=== PATIENT | male | born 1930 | race Hispanic/Latino ===

== ENCOUNTER 2017-11-21 14:02 | Inpatient (IN) | payer MEDICARE, MEDICAID ==
[~2017-11-21] VITALS: Ht 160 cm; Wt 63.5 kg
[2017-11-21 15:34] LABS: BASOPHILS % (AUTO) 0.2 % (0.0-5.0); EOSINOPHILS % (AUTO) 0.1 % (0.0-8.0); HEMATOCRIT 34.4 % (42-54); LYMPHOCYTES % (AUTO) 14.1 % (21.0-51.0); MEAN CORPUSCULAR HEMOGLOBIN 32.1 pg (27.0-33.0); MEAN CORPUSCULAR HGB CONC 35.4 g/dL (32.0-36.0); MEAN CORPUSCULAR VOLUME 90.6 fL (79-99); MONOCYTES % (AUTO) 12.3 % (3.0-13.0); NEUTROPHILS % (AUTO) 73.3 % (40.0-77.0); PLATELET COUNT (AUTO) 121 K/uL (130-400); RED CELL DISTRIBUTION WIDTH 14.3 % (11.0-15.5); WHITE BLOOD COUNT (AUTO) 10.6 K/uL (4.8-10.8)
[2017-11-21 15:44] LABS: CREATININE 1.3 mg/dL (0.5-1.5)
[2017-11-21 15:47] LABS: INR 1.09 (0.85-1.15); PARTIAL THROMBOPLASTIN TIME 24.9 SEC (26.3-35.5); PROTHROMBIN TIME 11.4 SEC (9.6-11.6)
[2017-11-21 15:50] LABS: ALBUMIN 3.3 g/dL (3.5-5.0); BILIRUBIN,TOTAL 0.7 mg/dL (0.2-1.0); TOTAL PROTEIN, SERUM 6.8 g/dL (6.0-8.3)
[2017-11-21] MEDS ORDERED: ONDANSETRON HCL 4 MG/2 ML VIAL ONE (16:09)
[2017-11-21] MEDS ORDERED: MORPHINE SULFATE 4 MG/1ML SYG ONE (16:10)
[2017-11-21 20:15] VITALS: BP 117/62
[2017-11-21] MEDS ORDERED: CLOP75TA14 PO (21:01)
[2017-11-21] MEDS ORDERED: AEC81 PO (21:02)
[2017-11-21] MEDS ORDERED: ONDANSETRON HCL 4 MG/2 ML VIAL IVP PRN (21:30)
[2017-11-21] MEDS ORDERED: MORPHINE SULFATE 2 MG/ML 1ML SYG IVP PRN ×2 (21:30→23:30)
[2017-11-21] MEDS: HYDROCODONE/ACETAMINOPHEN 5/325 MG TAB PO SCH (21:41)
[2017-11-21 22:31] LABS: CREATINE KINASE MB 0.9 ng/mL (0.5-3.6); CREATINE KINASE, TOTAL 167 U/L (21-232); MYOGLOBIN 145 ng/mL (10-92); TROPONIN I < 0.04 ng/mL (0.00-0.06)
[2017-11-21] MEDS ORDERED: ACETAMINOPHEN 325 MG TAB PO PRN (22:45)
[2017-11-21] MEDS ORDERED: GLUCAGON 1MG KIT 1 MG ML IM PRN (22:45)
[2017-11-21] MEDS ORDERED: DEXTROSE 50%-WATER 50 ML DISP.SYRIN IV PRN (22:45)
[2017-11-22] VITALS (7 sets, daily range): BP systolic 118–139; BP diastolic 54–72
[2017-11-22] MEDS ORDERED: PNEUMOCOCCAL VACCINE POLYVALENT 0.5 ML/VIAL [PPV] IM SCH (02:30)
[2017-11-22] MEDS: HYDROCODONE/ACETAMINOPHEN 5/325 MG TAB PO SCH ×4 (03:45→20:22)
[2017-11-22] MEDS: INSULIN HUMULIN R 100 UNIT/ML 3ML SQ SCH ×4 (05:48→22:16)
[2017-11-22] MEDS ORDERED: PNEUMOCOCCAL VACCINE POLYVALENT 0.5 ML/VIAL [PPV] IM ONE (06:15)
[2017-11-22 07:38] LABS: CREATINE KINASE MB 1.2 ng/mL (0.5-3.6); CREATINE KINASE, TOTAL 174 U/L (21-232); MYOGLOBIN 206 ng/mL (10-92); TROPONIN I < 0.04 ng/mL (0.00-0.06)
[2017-11-22] MEDS: CARVEDILOL 3.125 MG TABLET PO SCH (20:21)
[2017-11-23] VITALS (30 sets, daily range): BP systolic 104–155; BP diastolic 61–95
[2017-11-23] MEDS: HYDROCODONE/ACETAMINOPHEN 5/325 MG TAB PO SCH ×4 (03:18→21:07)
[2017-11-23] MEDS: FLU VACC QS2017-18 36MOS UP/PF 60 MCG/0.5 ML ML IM SCH ×2 (04:15→17:38)
[2017-11-23] MEDS ORDERED: MORPHINE SULFATE 4 MG/1ML SYG ONE (05:34)
[2017-11-23] MEDS: INSULIN HUMULIN R 100 UNIT/ML 3ML SQ SCH ×4 (05:40→23:58)
[2017-11-23] MEDS: PNEUMOCOCCAL VACCINE POLYVALENT 0.5 ML/VIAL [PPV] IM SCH ×2 (06:15→17:37)
[2017-11-23] MEDS ORDERED: CEFAZOLIN 2GM / 50 ML 50 ML IV SCH ×2 (10:00)
[2017-11-23] MEDS: CEFAZOLIN SODIUM 1 GM VIAL IVP SCH ×2 (10:15→13:00)
[2017-11-23] MEDS: CARVEDILOL 3.125 MG TABLET PO SCH ×2 (11:31→21:08)
[2017-11-23] MEDS ORDERED: ROPIVACAINE 0.5% 5MG/ML 30ML IJ ONE (12:14)
[2017-11-23] MEDS ORDERED: PROPOFOL 10 MG/ML 20ML VIAL IV ONE (12:18)
[2017-11-23] MEDS ORDERED: KETAMINE HCL 100 MG/ML 5ML VIAL IJ ONE (12:29)
[2017-11-23] MEDS ORDERED: MIDAZOLAM HCL 1 MG/ML 2ML VIAL ONE (12:35)
[2017-11-24] VITALS (7 sets, daily range): BP systolic 114–151; BP diastolic 53–74
[2017-11-24] MEDS: HYDROCODONE/ACETAMINOPHEN 5/325 MG TAB PO SCH ×4 (03:41→21:22)
[2017-11-24] MEDS: FLU VACC QS2017-18 36MOS UP/PF 60 MCG/0.5 ML ML IM SCH (04:15)
[2017-11-24] MEDS: INSULIN HUMULIN R 100 UNIT/ML 3ML SQ SCH ×4 (06:43→21:00)
[2017-11-24] MEDS: CEFAZOLIN SODIUM 1 GM VIAL IVP SCH (07:34)
[2017-11-24] MEDS: CARVEDILOL 3.125 MG TABLET PO SCH ×2 (08:15→21:25)
[2017-11-24] MEDS ORDERED: LACTULOSE 20 GM/30 ML UDCUP PO PRN (13:15)
[2017-11-24] MEDS ORDERED: DOCUSATE CALCIUM 240 MG CAP PO SCH ×2 (13:15→13:39)
[2017-11-24] MEDS ORDERED: MORPHINE SULFATE 4 MG/1ML SYG ONE (16:05)
[2017-11-25 04:00] VITALS: BP 128/59
[2017-11-25] MEDS: HYDROCODONE/ACETAMINOPHEN 5/325 MG TAB PO SCH ×3 (04:24→15:03)
[2017-11-25] MEDS: INSULIN HUMULIN R 100 UNIT/ML 3ML SQ SCH ×2 (06:01→12:42)
[2017-11-25 07:51] VITALS: BP 134/68
[2017-11-25] MEDS ORDERED: ENOXAPARIN SODIUM 40 MG/0.4 ML SYRINGE SQ SCH (09:00)
[2017-11-25] MEDS: CARVEDILOL 3.125 MG TABLET PO SCH (09:15)
[2017-11-25 10:07] LABS: HEMATOCRIT 25.5 % (42-54); MEAN CORPUSCULAR HEMOGLOBIN 32.2 pg (27.0-33.0); MEAN CORPUSCULAR HGB CONC 35.1 g/dL (32.0-36.0); MEAN CORPUSCULAR VOLUME 91.9 fL (79-99); PLATELET COUNT (AUTO) 139 K/uL (130-400); RED BLOOD CELL COUNT(AUTO) 2.78 MIL/uL (4.50-6.20); RED CELL DISTRIBUTION WIDTH 14.3 % (11.0-15.5); WHITE BLOOD COUNT (AUTO) 8.9 K/uL (4.8-10.8)
[2017-11-25 10:22] LABS: CREATININE 1.5 mg/dL (0.5-1.5); POTASSIUM 4.1 mmol/L (3.5-5.1)
[2017-11-25] MEDS ORDERED: SODIUM CHLORIDE 0.9% 1000ML 1,000 ML IV SCH (10:45)
[2017-11-25 11:08] LABS: BAND NEUTROPHILS % (MANUAL) 1 % (0-2); BASOPHILS % (MANUAL) 1 % (0-2); EOSINOPHILS % (MANUAL) 2 % (1-6); LYMPHOCYTES % (MANUAL) 18 % (22-44); MAN.DIFF COMMENT-IMPRESSION MANUAL DIFFERENTIAL; MONOCYTES % (MANUAL) 12 % (2-9); PLATELET MORPHOLOGY COMMENT ADEQUATE; SEGMENTED NEUTROPHILS % 66 % (40-70)
[2017-11-25 11:46] VITALS: BP 148/76
[2017-11-25] MEDS ORDERED: FLU VACC QS2017-18 36MOS UP/PF 60 MCG/0.5 ML ML IM SCH (16:30)
== END 2017-11-25 17:07 | DRG 481 ==
LOC: EDH 14:02 → EDHIP 18:38 → 4AH 20:39
PROVIDERS: ADMIT Family Medicine; ATTEND Family Medicine
PROC: 0QH736Z Insertion of Intramedullary Internal Fixation Device into Left Upper Femur, Percutaneous Approach (ICD-10-PCS; principal; 2017-11-23 12:15)
PROC: 3E0234Z Introduction of Serum, Toxoid and Vaccine into Muscle, Percutaneous Approach (ICD-10-PCS; 2017-11-23 12:15)
PROC: 3E0234Z Introduction of Serum, Toxoid and Vaccine into Muscle, Percutaneous Approach (ICD-10-PCS; 2017-11-23 12:15)
DX: S72.22XA Displaced subtrochanteric fracture of left femur, initial encounter for closed fracture (principal); I50.22 Chronic systolic (congestive) heart failure; I11.0 Hypertensive heart disease with heart failure; E11.9 Type 2 diabetes mellitus without complications; I25.10 Atherosclerotic heart disease of native coronary artery without angina pectoris; E78.5 Hyperlipidemia, unspecified; I35.0 Nonrheumatic aortic (valve) stenosis; W10.8XXA Fall (on) (from) other stairs and steps, initial encounter; Y93.89 Activity, other specified; Y99.8 Other external cause status; Y92.098 Other place in other non-institutional residence as the place of occurrence of the external cause; Z23 Encounter for immunization
CPT/HCPCS: 36415; 71045; 73502; 73552; 73562; 76000; 80048; 80053; 82550; 82553; 82948; 83874; 84484; 85025; 85610; 85730; 86850; 86900; 86901; 86922; 90732; 93005; 93306; A4218; G0008; G0009; J0690; J1650; J1815; J2250; J2270; J2405; J2704; J2795; J3490; J7030; Q2038

== ENCOUNTER 2020-11-06 00:22 | Inpatient (IN) | payer MEDICAID, MEDICARE ==
[~2020-11-06 00:22] MED LIST: AEC81 PO; CLOP75TA14 PO
[2020-11-06] MEDS ORDERED: MORPHINE 2 MG SYG ONE (00:49)
[2020-11-06 01:16] LABS: BASOPHILS % (AUTO) 0.1 % (0.0-5.0); HEMATOCRIT 43.1 % (42-54); LYMPHOCYTES % (AUTO) 7.2 % (21.0-51.0); MEAN CORPUSCULAR HEMOGLOBIN 30.6 pg (27.0-33.0); MEAN CORPUSCULAR VOLUME 87.4 fL (79-99); MONOCYTES % (AUTO) 10.3 % (3.0-13.0); NEUTROPHILS % (AUTO) 82.2 % (40.0-77.0); PLATELET COUNT (AUTO) 142 K/uL (130-400); RED BLOOD CELL COUNT(AUTO) 4.93 MIL/uL (4.50-6.20); RED CELL DISTRIBUTION WIDTH 13.2 % (11.0-15.5); WHITE BLOOD COUNT (AUTO) 9.7 K/uL (4.8-10.8)
[2020-11-06 01:30] LABS: ALBUMIN 3.7 g/dL (3.5-5.0); BILIRUBIN,TOTAL 0.7 mg/dL (0.2-1.0); CREATININE 1.7 mg/dL (0.5-1.5); POTASSIUM 4.3 mmol/L (3.5-5.1); TOTAL PROTEIN, SERUM 7.6 g/dL (6.0-8.3)
[2020-11-06] MEDS ORDERED: INSULIN HUMULIN R 100 UNIT/ML 3ML ONE (01:47)
[2020-11-06] MEDS ORDERED: 0.9%NACL 1000ML 1,000 ML IV ONE (01:47)
[2020-11-06 02:00] LABS: APPEARANCE,URINE Cloudy (CLEAR); BILIRUBIN,URINE Negative (NEGATIVE); COLOR,URINE Yellow (YELLOW); GLUCOSE, URINE (UA) >=1000 mg/dL (NEGATIVE); KETONES,URINE 15 mg/dL (NEGATIVE); LEUKOCYTE ESTERASE ,URINE Negative (NEGATIVE); NITRATE,URINE Negative (NEGATIVE); OCCULT BLOOD,URINE Trace (NEGATIVE); PROTEIN,URINE POS 1+ mg/dL (NEGATIVE); UROBILINOGEN,URINE 0.2 mg/dL (0.2-1.0)
[2020-11-06] MEDS ORDERED: DEXTROSE 50%-WATER 50 ML DISP.SYRIN IV PRN (02:15)
[2020-11-06] MEDS ORDERED: MORPHINE 2 MG SYG IV PRN (02:15)
[2020-11-06] MEDS ORDERED: ONDANSETRON 4MG INJ IV PRN (02:15)
[2020-11-06] MEDS ORDERED: GLUCAGON 1MG KIT 1 MG ML IM PRN (02:15)
[2020-11-06] MEDS ORDERED: ACETAMINOPHEN 325 MG TAB PO PRN (02:15)
[2020-11-06] MEDS ORDERED: LACTULOSE 20 GM/30 ML UDCUP PO PRN (02:15)
[2020-11-06 02:17] LABS: BACTERIA,URINE None Seen /HPF (None Seen); RBC,URINE None Seen /HPF (0-1); SQUAMOUS EPITHELIAL CELL,UR Few /HPF (0-2); WBC,URINE 0-1 /HPF (0-1); YEAST,URINE BUDDING Rare /HPF (None Seen)
[2020-11-06] MEDS ORDERED: FUROSEMIDE 20MG VIAL ONE (04:42)
[2020-11-06] MEDS ORDERED: ASPIRIN 325 MG TABLET ONE (04:43)
[2020-11-06 04:51] LABS: INR 1.08 (0.85-1.15); PROTHROMBIN TIME 11.5 SEC (9.6-11.6)
[2020-11-06 04:53] LABS: PARTIAL THROMBOPLASTIN TIME 28.5 SEC (26.3-35.5)
[2020-11-06 05:17] LABS: THYROID STIMULATING HORMONE 0.9 uIU/mL (0.36-3.74)
[2020-11-06] MEDS ORDERED: INSULIN HUMULIN R 100 UNIT/ML 3ML SQ SCH ×2 (07:30→11:30)
[2020-11-06 10:20] VITALS: BP 144/83
[2020-11-06] MEDS: ASPIRIN 325MG EC TAB PO SCH (11:12)
[2020-11-06] MEDS: FUROSEMIDE 20MG VIAL IV SCH (11:12)
[2020-11-06] MEDS: METOPROLOL TARTRATE 25 MG TAB PO SCH ×2 (11:12→20:02)
[2020-11-06] MEDS: ASPIRIN 81MG CHEW TAB PO SCH (11:13)
[2020-11-06] MEDS: FAMOTIDINE 20MG TAB PO SCH ×2 (11:13→20:02)
[2020-11-06 15:19] VITALS: BP 112/74
[2020-11-06] MEDS ORDERED: CEFTRIAXONE 1G VIAL IVP SCH (15:30)
[2020-11-06] MEDS: INSULIN HUMULIN R 100 UNIT/ML 3ML SQ SCH ×2 (16:09→21:00)
[2020-11-06] MEDS: INSULIN LISPRO 100 UNIT/ML 3ML SQ SCH (16:12)
[2020-11-06] MEDS ORDERED: ATOR20TA65 PO (16:46)
[2020-11-06] MEDS ORDERED: FURO20TA4 PO (16:46)
[2020-11-06] MEDS ORDERED: LISI2.5T13 PO (16:46)
[2020-11-06] MEDS ORDERED: GLIP1TAB6 PO (16:46)
[2020-11-06 19:54] VITALS: BP 102/62
[2020-11-06] MEDS ORDERED: INSULIN GLARGINE 100 UNITS/ML 10 ML VIAL SQ SCH (21:00)
[2020-11-06] MEDS: CEFTRIAXONE 1G VIAL IVP SCH (21:17)
[2020-11-06] MEDS: ACETAMINOPHEN 325 MG TAB PO PRN (22:00)
[2020-11-06 23:56] VITALS: BP 103/60
[2020-11-07] MEDS: ASPIRIN 325MG EC TAB PO SCH (02:45)
[2020-11-07] MEDS: FUROSEMIDE 20MG VIAL IV SCH ×2 (02:45→10:04)
[2020-11-07 03:51] VITALS: BP 112/61
[2020-11-07 05:22] LABS: BASOPHILS % (AUTO) 0.3 % (0.0-5.0); EOSINOPHILS % (AUTO) 1.4 % (0.0-8.0); HEMATOCRIT 38.1 % (42-54); LYMPHOCYTES % (AUTO) 15.5 % (21.0-51.0); MEAN CORPUSCULAR HEMOGLOBIN 30.2 pg (27.0-33.0); MEAN CORPUSCULAR HGB CONC 33.9 g/dL (32.0-36.0); MEAN CORPUSCULAR VOLUME 89.2 fL (79-99); MONOCYTES % (AUTO) 8.5 % (3.0-13.0); PLATELET COUNT (AUTO) 116 K/uL (130-400); RED BLOOD CELL COUNT(AUTO) 4.27 MIL/uL (4.50-6.20); RED CELL DISTRIBUTION WIDTH 13.6 % (11.0-15.5); WHITE BLOOD COUNT (AUTO) 7.2 K/uL (4.8-10.8)
[2020-11-07 05:31] LABS: CREATININE 1.3 mg/dL (0.5-1.5); POTASSIUM 3.9 mmol/L (3.5-5.1)
[2020-11-07 06:05] LABS: B-TYPE NATRIURETIC PEPTIDE 1660 pg/mL (0-100)
[2020-11-07 08:00] VITALS: BP 143/69
[2020-11-07] MEDS: CEFTRIAXONE 1G VIAL IVP SCH ×2 (10:02→21:58)
[2020-11-07] MEDS: METOPROLOL TARTRATE 25 MG TAB PO SCH ×2 (10:03→21:58)
[2020-11-07] MEDS: FAMOTIDINE 20MG TAB PO SCH ×2 (10:03→21:58)
[2020-11-07] MEDS: ASPIRIN 81MG CHEW TAB PO SCH (10:03)
[2020-11-07] MEDS: INSULIN HUMULIN R 100 UNIT/ML 3ML SQ SCH ×3 (10:25→22:01)
[2020-11-07] MEDS: INSULIN LISPRO 100 UNIT/ML 3ML SQ SCH ×3 (10:25→17:39)
[2020-11-07 11:39] VITALS: BP 131/79
[2020-11-07 16:00] VITALS: BP 102/71
[2020-11-07 19:00] VITALS: BP 113/72
[2020-11-07] MEDS: INSULIN GLARGINE 100 UNITS/ML 10 ML VIAL SQ SCH (22:02)
[2020-11-08] VITALS: BP 109/69
[2020-11-08] MEDS: FUROSEMIDE 20MG VIAL IV SCH ×2 (02:04→09:56)
[2020-11-08] MEDS: ASPIRIN 325MG EC TAB PO SCH (02:04)
[2020-11-08 04:00] VITALS: BP 113/74
[2020-11-08] MEDS: INSULIN HUMULIN R 100 UNIT/ML 3ML SQ SCH ×4 (06:08→21:06)
[2020-11-08] MEDS ORDERED: AEC81 PO (06:43)
[2020-11-08] MEDS ORDERED: APIX5TAB PO (06:43)
[2020-11-08] MEDS ORDERED: METF-444 PO (06:43)
[2020-11-08] MEDS ORDERED: CARV3.12 PO (06:43)
[2020-11-08 07:30] VITALS: BP 120/82
[2020-11-08] MEDS: FAMOTIDINE 20MG TAB PO SCH ×2 (09:56→21:02)
[2020-11-08] MEDS: ASPIRIN 81MG CHEW TAB PO SCH (09:56)
[2020-11-08] MEDS: CEFTRIAXONE 1G VIAL IVP SCH ×2 (09:56→21:01)
[2020-11-08] MEDS: METOPROLOL TARTRATE 25 MG TAB PO SCH ×2 (09:57→21:02)
[2020-11-08 10:03] LABS: CREATININE 1.1 mg/dL (0.5-1.5); MAGNESIUM 1.7 mg/dL (1.80-2.40); POTASSIUM 3.4 mmol/L (3.5-5.1)
[2020-11-08] MEDS: INSULIN LISPRO 100 UNIT/ML 3ML SQ SCH ×4 (10:52→17:00)
[2020-11-08 11:00] VITALS: BP 116/79
[2020-11-08] MEDS ORDERED: MAGNESIUM 2GM PREMIX 50ML 50 ML IV PRN (15:30)
[2020-11-08 16:00] VITALS: BP 121/76
[2020-11-08 20:00] VITALS: BP 128/76
[2020-11-08] MEDS ORDERED: CARVEDILOL 3.125 MG TABLET PO SCH (21:00)
[2020-11-08] MEDS: APIXABAN 5 MG TABLET PO SCH (21:02)
[2020-11-08] MEDS: INSULIN GLARGINE 100 UNITS/ML 10 ML VIAL SQ SCH (21:07)
[2020-11-09] VITALS: BP 125/91
[2020-11-09] MEDS: ACETAMINOPHEN 325 MG TAB PO PRN
[2020-11-09 04:13] VITALS: BP 138/67
[2020-11-09] MEDS: INSULIN HUMULIN R 100 UNIT/ML 3ML SQ SCH ×2 (06:09→11:23)
[2020-11-09 06:55] LABS: BASOPHILS % (AUTO) 0.6 % (0.0-5.0); EOSINOPHILS % (AUTO) 0.2 % (0.0-8.0); HEMATOCRIT 44.1 % (42-54); LYMPHOCYTES % (AUTO) 19.7 % (21.0-51.0); MEAN CORPUSCULAR HEMOGLOBIN 30.1 pg (27.0-33.0); MEAN CORPUSCULAR HGB CONC 34.5 g/dL (32.0-36.0); MEAN CORPUSCULAR VOLUME 87.3 fL (79-99); MONOCYTES % (AUTO) 12.8 % (3.0-13.0); NEUTROPHILS % (AUTO) 66.1 % (40.0-77.0); PLATELET COUNT (AUTO) 91 K/uL (130-400); RED BLOOD CELL COUNT(AUTO) 5.05 MIL/uL (4.50-6.20); WHITE BLOOD COUNT (AUTO) 4.8 K/uL (4.8-10.8)
[2020-11-09 07:04] LABS: MAGNESIUM 1.6 mg/dL (1.80-2.40); POTASSIUM 3.2 mmol/L (3.5-5.1)
[2020-11-09 07:11] LABS: B-TYPE NATRIURETIC PEPTIDE 2070 pg/mL (0-100)
[2020-11-09 07:57] VITALS: BP 141/94
[2020-11-09] MEDS: INSULIN LISPRO 100 UNIT/ML 3ML SQ SCH ×5 (08:00→22:04)
[2020-11-09] MEDS: LISINOPRIL 2.5 MG TABLET PO SCH (08:54)
[2020-11-09] MEDS: ATORVASTATIN 20 MG TABLET PO SCH (08:54)
[2020-11-09] MEDS: APIXABAN 5 MG TABLET PO SCH ×2 (08:54→20:55)
[2020-11-09] MEDS: ASPIRIN 81MG CHEW TAB PO SCH (08:54)
[2020-11-09] MEDS: METOPROLOL TARTRATE 25 MG TAB PO SCH ×2 (08:55→20:55)
[2020-11-09] MEDS: CEFTRIAXONE 1G VIAL IVP SCH ×2 (08:55→20:55)
[2020-11-09] MEDS: FAMOTIDINE 20MG TAB PO SCH ×2 (08:55→20:55)
[2020-11-09] MEDS: FUROSEMIDE 20MG VIAL IV SCH (08:57)
[2020-11-09] MEDS ORDERED: ASPIRIN 81 MG EC TAB PO SCH (09:00)
[2020-11-09 11:25] VITALS: BP 113/81
[2020-11-09] MEDS ORDERED: POTASSIUM CHLORIDE 20MEQ/100ML 100 ML IV PRN (14:30)
[2020-11-09 16:38] VITALS: BP 146/81
[2020-11-09 20:00] VITALS: BP 116/74
[2020-11-09] MEDS: INSULIN GLARGINE 100 UNITS/ML 10 ML VIAL SQ SCH (22:03)
[2020-11-10] VITALS (7 sets, daily range): BP systolic 95–118; BP diastolic 54–78
[2020-11-10 04:03] LABS: EOSINOPHILS % (AUTO) 0.4 % (0.0-8.0); HEMATOCRIT 41.1 % (42-54); LYMPHOCYTES % (AUTO) 37.8 % (21.0-51.0); MEAN CORPUSCULAR HEMOGLOBIN 30.4 pg (27.0-33.0); MEAN CORPUSCULAR VOLUME 86.7 fL (79-99); MONOCYTES % (AUTO) 15.4 % (3.0-13.0); NEUTROPHILS % (AUTO) 44.8 % (40.0-77.0); PLATELET COUNT (AUTO) 88 K/uL (130-400); RED BLOOD CELL COUNT(AUTO) 4.74 MIL/uL (4.50-6.20); RED CELL DISTRIBUTION WIDTH 12.6 % (11.0-15.5); WHITE BLOOD COUNT (AUTO) 5.2 K/uL (4.8-10.8)
[2020-11-10 04:14] LABS: ALBUMIN 2.4 g/dL (3.5-5.0); BILIRUBIN,TOTAL 0.7 mg/dL (0.2-1.0); CREATININE 1.1 mg/dL (0.5-1.5); TOTAL PROTEIN, SERUM 6.1 g/dL (6.0-8.3)
[2020-11-10] MEDS: INSULIN LISPRO 100 UNIT/ML 3ML SQ SCH ×7 (05:24→20:01)
[2020-11-10] MEDS: POTASSIUM CHLORIDE 10% ELIXIR 20 MEQ/15 ML UDCUP PO PRN ×2 (05:42→09:48)
[2020-11-10] MEDS: FUROSEMIDE 20MG VIAL IV SCH (09:48)
[2020-11-10] MEDS: CEFTRIAXONE 1G VIAL IVP SCH ×2 (09:48→20:05)
[2020-11-10] MEDS: ATORVASTATIN 20 MG TABLET PO SCH (09:53)
[2020-11-10] MEDS: APIXABAN 5 MG TABLET PO SCH ×2 (09:53→20:00)
[2020-11-10] MEDS: FAMOTIDINE 20MG TAB PO SCH ×2 (09:53→20:00)
[2020-11-10] MEDS: LISINOPRIL 2.5 MG TABLET PO SCH (09:53)
[2020-11-10] MEDS: METOPROLOL TARTRATE 25 MG TAB PO SCH ×2 (09:53→20:00)
[2020-11-10] MEDS: ASPIRIN 81MG CHEW TAB PO SCH (09:54)
[2020-11-10] MEDS: KCL 20 MEQ ERTAB PO PRN (11:53)
[2020-11-10] MEDS: INSULIN GLARGINE 100 UNITS/ML 10 ML VIAL SQ SCH (20:02)
[2020-11-10] MEDS ORDERED: HYDROMORPHONE 2 MG VIAL (2MG/ML) ONE (20:26)
[2020-11-10] MEDS: HYDROMORPHONE 2 MG VIAL (2MG/ML) IVP PRN ×3 (21:35→23:23)
[2020-11-11] MEDS: HYDROMORPHONE 2 MG VIAL (2MG/ML) IVP PRN ×6 (00:28→05:48)
[2020-11-11 03:35] VITALS: BP 94/57
[2020-11-11 04:39] LABS: BASOPHILS % (AUTO) 0.8 % (0.0-5.0); EOSINOPHILS % (AUTO) 1.2 % (0.0-8.0); HEMATOCRIT 39.7 % (42-54); LYMPHOCYTES % (AUTO) 53.4 % (21.0-51.0); MEAN CORPUSCULAR HGB CONC 34.5 g/dL (32.0-36.0); MEAN CORPUSCULAR VOLUME 86.9 fL (79-99); MONOCYTES % (AUTO) 11.7 % (3.0-13.0); NEUTROPHILS % (AUTO) 32.4 % (40.0-77.0); PLATELET COUNT (AUTO) 88 K/uL (130-400); RED BLOOD CELL COUNT(AUTO) 4.57 MIL/uL (4.50-6.20); WHITE BLOOD COUNT (AUTO) 6.5 K/uL (4.8-10.8)
[2020-11-11 04:49] LABS: ALBUMIN 2.3 g/dL (3.5-5.0); BILIRUBIN,TOTAL 0.6 mg/dL (0.2-1.0); CREATININE 1.1 mg/dL (0.5-1.5); POTASSIUM 3.5 mmol/L (3.5-5.1); TOTAL PROTEIN, SERUM 5.8 g/dL (6.0-8.3)
[2020-11-11 04:51] LABS: B-TYPE NATRIURETIC PEPTIDE 1270 pg/mL (0-100)
[2020-11-11] MEDS ORDERED: MORPHINE 2 MG SYG IVP PRN (05:30)
[2020-11-11] MEDS: KCL 20 MEQ ERTAB PO PRN (05:32)
[2020-11-11] MEDS: INSULIN LISPRO 100 UNIT/ML 3ML SQ SCH ×7 (05:51→21:06)
[2020-11-11 08:00] VITALS: BP 120/67
[2020-11-11] MEDS: METOPROLOL TARTRATE 25 MG TAB PO SCH ×2 (09:00→20:56)
[2020-11-11] MEDS: LISINOPRIL 2.5 MG TABLET PO SCH (09:00)
[2020-11-11] MEDS: CEFTRIAXONE 1G VIAL IVP SCH ×2 (11:25→21:13)
[2020-11-11] MEDS: FAMOTIDINE 20MG TAB PO SCH ×2 (11:26→20:59)
[2020-11-11] MEDS: APIXABAN 5 MG TABLET PO SCH ×2 (11:26→20:56)
[2020-11-11] MEDS: ATORVASTATIN 20 MG TABLET PO SCH (11:26)
[2020-11-11] MEDS: FUROSEMIDE 20MG VIAL IV SCH (11:26)
[2020-11-11] MEDS: ASPIRIN 81MG CHEW TAB PO SCH (11:27)
[2020-11-11 12:00] VITALS: BP 101/58
[2020-11-11 16:00] VITALS: BP 110/73
[2020-11-11 20:31] VITALS: BP 119/65
[2020-11-11] MEDS: INSULIN GLARGINE 100 UNITS/ML 10 ML VIAL SQ SCH (21:08)
[2020-11-11 23:31] VITALS: BP 140/79
[2020-11-12 04:07] VITALS: BP 110/60
[2020-11-12 05:34] LABS: BASOPHILS % (AUTO) 0.6 % (0.0-5.0); EOSINOPHILS % (AUTO) 1.4 % (0.0-8.0); HEMATOCRIT 38.7 % (42-54); LYMPHOCYTES % (AUTO) 59.7 % (21.0-51.0); MEAN CORPUSCULAR HEMOGLOBIN 29.4 pg (27.0-33.0); MEAN CORPUSCULAR HGB CONC 33.6 g/dL (32.0-36.0); MEAN CORPUSCULAR VOLUME 87.6 fL (79-99); MONOCYTES % (AUTO) 8.9 % (3.0-13.0); PLATELET COUNT (AUTO) 89 K/uL (130-400); RED BLOOD CELL COUNT(AUTO) 4.42 MIL/uL (4.50-6.20); RED CELL DISTRIBUTION WIDTH 12.8 % (11.0-15.5); WHITE BLOOD COUNT (AUTO) 8.4 K/uL (4.8-10.8)
[2020-11-12 05:47] LABS: ALBUMIN 2.3 g/dL (3.5-5.0); BILIRUBIN,TOTAL 0.4 mg/dL (0.2-1.0); POTASSIUM 3.6 mmol/L (3.5-5.1)
[2020-11-12] MEDS: INSULIN LISPRO 100 UNIT/ML 3ML SQ SCH ×7 (06:20→20:42)
[2020-11-12] MEDS: POTASSIUM CHLORIDE 10% ELIXIR 20 MEQ/15 ML UDCUP PO PRN (06:21)
[2020-11-12 08:00] VITALS: BP 131/70
[2020-11-12] MEDS: METOPROLOL TARTRATE 25 MG TAB PO SCH ×2 (09:52→20:33)
[2020-11-12] MEDS: FAMOTIDINE 20MG TAB PO SCH ×2 (09:52→20:33)
[2020-11-12] MEDS: ATORVASTATIN 20 MG TABLET PO SCH (09:52)
[2020-11-12] MEDS: APIXABAN 5 MG TABLET PO SCH ×2 (09:53→20:33)
[2020-11-12] MEDS: LISINOPRIL 2.5 MG TABLET PO SCH (09:53)
[2020-11-12] MEDS: ASPIRIN 81MG CHEW TAB PO SCH (09:53)
[2020-11-12] MEDS: CEFTRIAXONE 1G VIAL IVP SCH ×2 (09:53→20:33)
[2020-11-12] MEDS: FUROSEMIDE 20MG VIAL IV SCH (09:54)
[2020-11-12] MEDS: KCL 20 MEQ ERTAB PO PRN (09:57)
[2020-11-12 12:00] VITALS: BP 113/64
[2020-11-12 16:08] VITALS: BP 107/63
[2020-11-12 19:46] VITALS: BP 151/60
[2020-11-12] MEDS: INSULIN GLARGINE 100 UNITS/ML 10 ML VIAL SQ SCH (20:41)
[2020-11-12 23:27] VITALS: BP 112/66
[2020-11-13 03:46] VITALS: BP 108/63
[2020-11-13] MEDS: INSULIN LISPRO 100 UNIT/ML 3ML SQ SCH ×7 (05:52→20:46)
[2020-11-13 07:16] LABS: HEMATOCRIT 38.2 % (42-54); MEAN CORPUSCULAR HEMOGLOBIN 30.1 pg (27.0-33.0); MEAN CORPUSCULAR HGB CONC 34.6 g/dL (32.0-36.0); MEAN CORPUSCULAR VOLUME 87.2 fL (79-99); PLATELET COUNT (AUTO) 101 K/uL (130-400); RED BLOOD CELL COUNT(AUTO) 4.38 MIL/uL (4.50-6.20); WHITE BLOOD COUNT (AUTO) 8.5 K/uL (4.8-10.8)
[2020-11-13 08:00] VITALS: BP 130/76
[2020-11-13 08:14] LABS: POTASSIUM 3.6 mmol/L (3.5-5.1)
[2020-11-13 08:43] LABS: EOSINOPHILS % (MANUAL) 1 % (1-6); LYMPHOCYTES % (MANUAL) 42 % (22-44); MAN.DIFF COMMENT-IMPRESSION MANUAL DIFFERENTIAL; MONOCYTES % (MANUAL) 12 % (2-9); PLATELET MORPHOLOGY COMMENT SLIGHTLY DECREASED; REACTIVE LYMPHOCYTES 3 % (0-0); SEGMENTED NEUTROPHILS % 42 % (40-70)
[2020-11-13] MEDS: FUROSEMIDE 20MG VIAL IV SCH (10:34)
[2020-11-13] MEDS: CEFTRIAXONE 1G VIAL IVP SCH ×2 (10:34→20:34)
[2020-11-13] MEDS: ATORVASTATIN 20 MG TABLET PO SCH (10:35)
[2020-11-13] MEDS: ASPIRIN 81MG CHEW TAB PO SCH (10:35)
[2020-11-13] MEDS: FAMOTIDINE 20MG TAB PO SCH ×2 (10:35→20:34)
[2020-11-13] MEDS: METOPROLOL TARTRATE 25 MG TAB PO SCH ×3 (10:35→23:37)
[2020-11-13] MEDS: APIXABAN 5 MG TABLET PO SCH ×2 (10:35→20:34)
[2020-11-13] MEDS: LISINOPRIL 2.5 MG TABLET PO SCH (10:35)
[2020-11-13] MEDS: KCL 20 MEQ ERTAB PO PRN (10:38)
[2020-11-13 12:00] VITALS: BP 108/64
[2020-11-13 16:00] VITALS: BP 103/67
[2020-11-13 20:26] VITALS: BP 100/55
[2020-11-13] MEDS: INSULIN GLARGINE 100 UNITS/ML 10 ML VIAL SQ SCH (20:36)
[2020-11-13 23:30] VITALS: BP 109/59
[2020-11-14] VITALS (7 sets, daily range): BP systolic 105–132; BP diastolic 56–77
[2020-11-14] MEDS: INSULIN LISPRO 100 UNIT/ML 3ML SQ SCH ×7 (06:28→20:45)
[2020-11-14 08:25] LABS: POTASSIUM 4.3 mmol/L (3.5-5.1)
[2020-11-14] MEDS: ASPIRIN 81MG CHEW TAB PO SCH (09:01)
[2020-11-14] MEDS: LISINOPRIL 2.5 MG TABLET PO SCH (09:01)
[2020-11-14] MEDS: APIXABAN 5 MG TABLET PO SCH ×2 (09:01→20:26)
[2020-11-14] MEDS: FAMOTIDINE 20MG TAB PO SCH ×2 (09:01→20:26)
[2020-11-14] MEDS: ATORVASTATIN 20 MG TABLET PO SCH (09:01)
[2020-11-14] MEDS: METOPROLOL TARTRATE 25 MG TAB PO SCH ×2 (09:01→20:41)
[2020-11-14] MEDS: FUROSEMIDE 20MG VIAL IV SCH (09:02)
[2020-11-14] MEDS: CEFTRIAXONE 1G VIAL IVP SCH ×2 (09:02→20:26)
[2020-11-14] MEDS: INSULIN GLARGINE 100 UNITS/ML 10 ML VIAL SQ SCH (20:44)
[2020-11-15 03:34] VITALS: BP 120/65
[2020-11-15] MEDS: INSULIN LISPRO 100 UNIT/ML 3ML SQ SCH ×7 (06:31→21:23)
[2020-11-15 08:17] VITALS: BP 128/74
[2020-11-15] MEDS: ASPIRIN 81MG CHEW TAB PO SCH (09:05)
[2020-11-15] MEDS: ATORVASTATIN 20 MG TABLET PO SCH (09:06)
[2020-11-15] MEDS: METOPROLOL TARTRATE 25 MG TAB PO SCH ×2 (09:06→21:22)
[2020-11-15] MEDS: APIXABAN 5 MG TABLET PO SCH ×2 (09:06→21:22)
[2020-11-15] MEDS: FAMOTIDINE 20MG TAB PO SCH ×2 (09:06→21:21)
[2020-11-15] MEDS: LISINOPRIL 2.5 MG TABLET PO SCH (09:06)
[2020-11-15] MEDS: CEFTRIAXONE 1G VIAL IVP SCH ×2 (09:08→21:21)
[2020-11-15] MEDS: FUROSEMIDE 20MG VIAL IV SCH (09:08)
[2020-11-15 11:19] VITALS: BP 105/61
[2020-11-15 16:02] VITALS: BP 103/56
[2020-11-15 20:00] VITALS: BP 120/60
[2020-11-15] MEDS: INSULIN GLARGINE 100 UNITS/ML 10 ML VIAL SQ SCH (21:00)
[2020-11-16] VITALS: BP 126/72
[2020-11-16 04:00] VITALS: BP 121/71
[2020-11-16] MEDS: INSULIN LISPRO 100 UNIT/ML 3ML SQ SCH ×7 (05:15→21:00)
[2020-11-16 07:30] VITALS: BP 133/77
[2020-11-16] MEDS: FUROSEMIDE 20MG VIAL IV SCH (10:32)
[2020-11-16] MEDS: CEFTRIAXONE 1G VIAL IVP SCH ×2 (10:33→21:26)
[2020-11-16] MEDS: APIXABAN 5 MG TABLET PO SCH ×2 (10:33→21:26)
[2020-11-16] MEDS: METOPROLOL TARTRATE 25 MG TAB PO SCH ×2 (10:33→21:26)
[2020-11-16] MEDS: LISINOPRIL 2.5 MG TABLET PO SCH (10:33)
[2020-11-16] MEDS: ASPIRIN 81MG CHEW TAB PO SCH (10:33)
[2020-11-16] MEDS: ATORVASTATIN 20 MG TABLET PO SCH (10:33)
[2020-11-16] MEDS: FAMOTIDINE 20MG TAB PO SCH ×2 (10:55→21:26)
[2020-11-16 11:00] VITALS: BP 112/68
[2020-11-16 16:00] VITALS: BP 112/73
[2020-11-16 16:12] LABS: BASOPHILS % (AUTO) 0.2 % (0.0-5.0); EOSINOPHILS % (AUTO) 0.6 % (0.0-8.0); HEMATOCRIT 42.3 % (42-54); LYMPHOCYTES % (AUTO) 24.5 % (21.0-51.0); MEAN CORPUSCULAR HEMOGLOBIN 30.3 pg (27.0-33.0); MEAN CORPUSCULAR HGB CONC 33.6 g/dL (32.0-36.0); MEAN CORPUSCULAR VOLUME 90.4 fL (79-99); MONOCYTES % (AUTO) 10.2 % (3.0-13.0); NEUTROPHILS % (AUTO) 64.3 % (40.0-77.0); PLATELET COUNT (AUTO) 167 K/uL (130-400); RED BLOOD CELL COUNT(AUTO) 4.68 MIL/uL (4.50-6.20); RED CELL DISTRIBUTION WIDTH 13.2 % (11.0-15.5); WHITE BLOOD COUNT (AUTO) 10.3 K/uL (4.8-10.8)
[2020-11-16 16:23] LABS: CREATININE 1.1 mg/dL (0.5-1.5); POTASSIUM 3.7 mmol/L (3.5-5.1)
[2020-11-16 20:16] VITALS: BP 131/77
[2020-11-16] MEDS: INSULIN GLARGINE 100 UNITS/ML 10 ML VIAL SQ SCH (21:00)
[2020-11-17 00:05] VITALS: BP 121/71
[2020-11-17 04:20] VITALS: BP 126/67
[2020-11-17 04:59] VITALS: BP 117/68
[2020-11-17] MEDS: INSULIN LISPRO 100 UNIT/ML 3ML SQ SCH ×4 (07:02→13:49)
[2020-11-17 08:00] VITALS: BP 118/69
[2020-11-17] MEDS: ASPIRIN 81MG CHEW TAB PO SCH (09:43)
[2020-11-17] MEDS: APIXABAN 5 MG TABLET PO SCH (09:43)
[2020-11-17] MEDS: CEFTRIAXONE 1G VIAL IVP SCH (09:43)
[2020-11-17] MEDS: FAMOTIDINE 20MG TAB PO SCH (09:44)
[2020-11-17] MEDS: LISINOPRIL 2.5 MG TABLET PO SCH (09:44)
[2020-11-17] MEDS: FUROSEMIDE 20MG VIAL IV SCH (09:44)
[2020-11-17] MEDS: ATORVASTATIN 20 MG TABLET PO SCH (09:44)
[2020-11-17] MEDS: METOPROLOL TARTRATE 25 MG TAB PO SCH (09:44)
[2020-11-17 12:00] VITALS: BP 94/53
[2020-11-17 16:00] VITALS: BP 100/64
[2020-11-17 17:02] LABS: HEMATOCRIT 41.4 % (42-54)
[2020-11-18] MEDS ORDERED: PANTOPRAZOLE 40 MG TAB DR PO SCH (09:00)
== END 2020-11-17 18:00 | DRG 551 ==
LOC: EDH 00:22 → EDHIP 02:12 → 4DH 10:20
PROVIDERS: ADMIT Family Medicine; ATTEND Family Medicine
DX: S32.009A Unspecified fracture of unspecified lumbar vertebra, initial encounter for closed fracture (principal); I50.23 Acute on chronic systolic (congestive) heart failure; N17.9 Acute kidney failure, unspecified; I45.2 Bifascicular block; Q21.1 Atrial septal defect; I24.9 Acute ischemic heart disease, unspecified; W01.0XXA Fall on same level from slipping, tripping and stumbling without subsequent striking against object, initial encounter; Z20.822 Contact with and (suspected) exposure to COVID-19; E78.5 Hyperlipidemia, unspecified; E87.6 Hypokalemia; I11.0 Hypertensive heart disease with heart failure; E11.9 Type 2 diabetes mellitus without complications; I08.3 Combined rheumatic disorders of mitral, aortic and tricuspid valves; K59.00 Constipation, unspecified; E83.42 Hypomagnesemia; I25.10 Atherosclerotic heart disease of native coronary artery without angina pectoris; R77.8 Other specified abnormalities of plasma proteins; Z95.0 Presence of cardiac pacemaker; Z79.899 Other long term (current) drug therapy; Y92.009 Unspecified place in unspecified non-institutional (private) residence as the place of occurrence of the external cause; I25.2 Old myocardial infarction; Z79.84 Long term (current) use of oral hypoglycemic drugs; Z79.82 Long term (current) use of aspirin
CPT/HCPCS: 36415; 71045; 72100; 73502; 80048; 80053; 80061; 81001; 82550; 82948; 83036; 83735; 83880; 84145; 84443; 84484; 85014; 85018; 85025; 85610; 85730; 87040; 87426; 93005; 93306; 93356; 97039; A4344; G0378; J0696; J1170; J1815; J1940; J2405; J3480; J7030; J7070; U0003